=== PATIENT | female | born 1980 | race Caucasian/White ===

== ENCOUNTER 2018-04-09 04:52 | Emergency (ER) | payer OTHER, SELFPAY ==
[2018-04-09 05:02] VITALS: BP 111/90; PULSE 84; RESP 18; TEMP 36.1; O2SAT 98; BMI 31.4
--- NOTE | 2018-04-09 05:08 | ED.EXTPRO ---
HPI - Extremity Problem General Chief complaint: Extremity Problem,Nontraumatic Stated complaint: Can't move right arm Time Seen by Provider: 04/09/18 05:08 Source: patient, RN notes reviewed and old records reviewed Mode of arrival: ambulatory Limitations: no limitations History of Present Illness HPI Narrative: Patient is a 38-year-old female presents with right upper extremity numbness and tingling in inability to move it. She woke up this way. It actually starts in her neck. She has had spasms like this in the past but this is the 1st time she not been able to move her arm. She is able move her fingers. No fevers. MD Complaint: extremity pain Related Data Home Medications Medication Instructions Recorded Confirmed methocarbamol 500 - 1,000 mg PO HS #0 11/02/17 Previous Rx's Medication Instructions Recorded lidocaine [Lidoderm] 3 patch TOPICAL Q12H #60 ea 08/24/17 cyclobenzaprine 10 mg PO Q8HP PRN #30 tab 11/02/17 hydrocodone-acetaminophen [[place]] 2 tab PO Q6HP PRN #14 tab 11/02/17 meloxicam [Mobic] 15 mg PO [facility] #30 tab 11/02/17 nitrofurantoin monohyd/m-cryst 100 mg PO BID #10 cap 11/02/17 [Macrobid] diazepam [Valium] 5 mg PO Q12HR PRN #10 tab 04/09/18 hydrocodone-acetaminophen [[place]] 1 tab PO Q4-6H PRN #10 tab 04/09/18 Allergies Allergy/AdvReac Type Severity Reaction Status Date / Time verapamil [VERAPAMIL] Allergy Severe MY BP Verified 04/09/18 05:06 TANKS Review of Systems Review of Systems All systems reviewed & are unremarkable except as noted in HPI and below Constitutional Denies body ache(s), Denies chills and Denies fever(s) ENT Ears, Nose, Mouth, and Throat: Denies vertigo and Denies dizziness Cardiovascular Denies chest pain, Denies syncope, Denies palpitations, Denies dyspnea and Denies dyspnea on exertion Respiratory Denies dyspnea and Denies dyspnea on exertion Musculoskeletal Reports as per HPI Integumentary/Breasts Denies pruritus, Denies erythema, Denies rash and Denies wounds Neurologic Reports as per HPI, Denies vertigo, Denies dizziness, Denies syncope and Reports radicular pain Endocrine Denies palpitations PFSH Medical History CSF leak (Acute) PSVT (paroxysmal supraventricular tachycardia) (Acute) Surgical History H/O cardiac radiofrequency ablation (Acute) Social History Smoking Status: Never smoker Exam Initial Vital Signs Initial Vital Signs: Vital Signs Temperature 97.0 F L 04/09/18 05:02 Pulse Rate 84 04/09/18 05:02 Respiratory Rate 18 04/09/18 05:02 Blood Pressure 111/90 H 04/09/18 05:02 Pulse Oximetry 98 04/09/18 05:02 Const General: acute distress (Tearfull appears in pain) HENMT Head: normal to inspection and normocephalic Neck Neck: normal visual inspection, No full ROM and other (Bilateral paracervical muscles and trapezius muscle spasms. More on right than left. Pain reproducible with palpation. Decreased cervical motion) Chest Chest: normal inspection of the chest Resp Effort & Inspection: normal respiratory effort Auscultation: clear to auscultation bilaterally, no rales, no rhonchi and no wheezes Cardio Rhythm: regular rhythm Heart Sounds: S1 normal and S2 normal Back/Spine/Pelvis Cervical Spine: pain with cervical ROM, cervical spasm and No step off deformity Skin General: no rashes or lesions noted, No jaundice and No petechiae Course Orders Ordered: Discontinued Medications Hydrocodone Bitart/Acetaminophen (Vicodin Prepack) 1 bottle MISC SEEINSTR ONE Stop: 04/09/18 06:08 Last Admin: 04/09/18 06:20 Dose: 1 bottle Diazepam (Valium) 5 mg PO NOW ONE Stop: 04/09/18 05:16 Last Admin: 04/09/18 05:29 Dose: 5 mg Ketorolac Tromethamine (Toradol) 60 mg IM NOW ONE Stop: 04/09/18 05:16 Last Admin: 04/09/18 05:29 Dose: 60 mg Vital Signs - 8 hr 04/09/18 05:02 04/09/18 06:24 Temperature 97.0 F L Pulse Rate 84 78 Respiratory Rate 18 16 Blood Pressure 111/90 H 121/70 H Pulse Oximetry 98 96 MDM - Extremity (Nontraumatic) MDM Narrative Medical decision making narrative: This is clinically a muscle spasm. Pain is reproducible range of motion is limited. The pain did improve after medication. Discharge Plan Departure Patient Disposition: Home, Self-Care Clinical Impression: Cervical radiculopathy, Trapezius muscle spasm Discharge Date/Time: 04/09/18 06:26 Interventions: ED Discharge Assessment Last Done: 04/09/18 06:24 Instructions: DI for Muscle Strain Activity Restrictions/Additional Instructions: *You have been diagnosed with muscle spasm *What to do: Heating pad, increase activity as tolerated *Continue to take medications as directed Meloxicam once daily do not combine with other NSAIDs Valium 1 tablet every 12 hr if needed for muscle spasm [place] 1 tablet every 4 hr or 2 tablets every 6 hr if needed for severe pain *Follow up with your primary care provider in 2-3 days *Return to ER if you should have increasing pain, weakness, or any new, worsening or concerning symptoms CONTROLLED SUBSTANCE DISCHARGE (Narcotoic/benzodiazepine/Flexeril/Phenergan) 1. You have been prescribed narcotic medications, it does have acetaminophen/Tylenol/paracetamol in it so do not take extra Tylenol or Tylenol containing products 2. Please understand that we cannot provide further refills of narcotics, benzodiazepines or controlled substances through the ED and her pain management will need to be through your provider. 3. While on these medications you cannot drive or operate heavy machinery. 4. You cannot sign legal documents or perform any duties such as this. 5. As long as you're taking opiate pain medications he should also be taking a stool softener such as Colace, Dulcolax, MiraLAX or prune juice, to help avoid constipation. Prescriptions: New hydrocodone-acetaminophen [[place]] 5-325 mg tablet 1 tab PO Q4-6H PRN (Reason: pain) Qty: 10 RF: 0 diazepam [Valium] 5 mg tablet 5 mg PO Q12HR PRN (Reason: muscle spasm) Qty: 10 RF: 0 No Action lidocaine [Lidoderm] 1 EACH adhesive patch,medicated 3 patch Topical Q12H Qty: 60 RF: 0 methocarbamol 500 MG tablet 500 - 1,000 mg PO HS Qty: 0 RF: 0 cyclobenzaprine 10 MG tablet 10 mg PO Q8HP PRNQty: 30 RF: 0 hydrocodone-acetaminophen [[place]] 5 MG/325 MG tablet 2 tab PO Q6HP PRNQty: 14 RF: 0 meloxicam [Mobic] 15 MG tablet 15 mg PO AMCC Qty: 30 RF: 0 nitrofurantoin monohyd/m-cryst [Macrobid] 100 MG capsule 100 mg PO BID Qty: 10 RF: 0
--- NOTE | 2018-04-09 05:23 | ED_ITS ---
HPI - Extremity Problem General Chief complaint: Extremity Problem,Nontraumatic Stated complaint: Can't move right arm Time Seen by Provider: 04/09/18 05:08 Source: patient, RN notes reviewed and old records reviewed Mode of arrival: ambulatory Limitations: no limitations History of Present Illness HPI Narrative: Patient is a 38-year-old female presents with right upper extremity numbness and tingling in inability to move it. She woke up this way. It actually starts in her neck. She has had spasms like this in the past but this is the 1st time she not been able to move her arm. She is able move her fingers. No fevers. MD Complaint: extremity pain Related Data Home Medications Medication Instructions Recorded Confirmed methocarbamol 500 - 1,000 mg PO HS #0 11/02/17 Previous Rx's Medication Instructions Recorded lidocaine [Lidoderm] 3 patch TOPICAL Q12H #60 ea 08/24/17 cyclobenzaprine 10 mg PO Q8HP PRN #30 tab 11/02/17 hydrocodone-acetaminophen [[place]] 2 tab PO Q6HP PRN #14 tab 11/02/17 meloxicam [Mobic] 15 mg PO [facility] #30 tab 11/02/17 nitrofurantoin monohyd/m-cryst 100 mg PO BID #10 cap 11/02/17 [Macrobid] diazepam [Valium] 5 mg PO Q12HR PRN #10 tab 04/09/18 hydrocodone-acetaminophen [[place]] 1 tab PO Q4-6H PRN #10 tab 04/09/18 Allergies Allergy/AdvReac Type Severity Reaction Status Date / Time verapamil [VERAPAMIL] Allergy Severe MY BP Verified 04/09/18 05:06 TANKS Review of Systems Review of Systems All systems reviewed & are unremarkable except as noted in HPI and below Constitutional Denies body ache(s), Denies chills and Denies fever(s) ENT Ears, Nose, Mouth, and Throat: Denies vertigo and Denies dizziness Cardiovascular Denies chest pain, Denies syncope, Denies palpitations, Denies dyspnea and Denies dyspnea on exertion Respiratory Denies dyspnea and Denies dyspnea on exertion Musculoskeletal Reports as per HPI Integumentary/Breasts Denies pruritus, Denies erythema, Denies rash and Denies wounds Neurologic Reports as per HPI, Denies vertigo, Denies dizziness, Denies syncope and Reports radicular pain Endocrine Denies palpitations PFSH Medical History CSF leak (Acute) PSVT (paroxysmal supraventricular tachycardia) (Acute) Surgical History H/O cardiac radiofrequency ablation (Acute) Social History Smoking Status: Never smoker Exam Initial Vital Signs Initial Vital Signs: Vital Signs Temperature 97.0 F L 04/09/18 05:02 Pulse Rate 84 04/09/18 05:02 Respiratory Rate 18 04/09/18 05:02 Blood Pressure 111/90 H 04/09/18 05:02 Pulse Oximetry 98 04/09/18 05:02 Const General: acute distress (Tearfull appears in pain) HENMT Head: normal to inspection and normocephalic Neck Neck: normal visual inspection, No full ROM and other (Bilateral paracervical muscles and trapezius muscle spasms. More on right than left. Pain reproducible with palpation. Decreased cervical motion) Chest Chest: normal inspection of the chest Resp Effort & Inspection: normal respiratory effort Auscultation: clear to auscultation bilaterally, no rales, no rhonchi and no wheezes Cardio Rhythm: regular rhythm Heart Sounds: S1 normal and S2 normal Back/Spine/Pelvis Cervical Spine: pain with cervical ROM, cervical spasm and No step off deformity Skin General: no rashes or lesions noted, No jaundice and No petechiae Course Orders Ordered: Discontinued Medications Hydrocodone Bitart/Acetaminophen (Vicodin Prepack) 1 bottle MISC SEEINSTR ONE Stop: 04/09/18 06:08 Last Admin: 04/09/18 06:20 Dose: 1 bottle Diazepam (Valium) 5 mg PO NOW ONE Stop: 04/09/18 05:16 Last Admin: 04/09/18 05:29 Dose: 5 mg Ketorolac Tromethamine (Toradol) 60 mg IM NOW ONE Stop: 04/09/18 05:16 Last Admin: 04/09/18 05:29 Dose: 60 mg Vital Signs - 8 hr 04/09/18 05:02 04/09/18 06:24 Temperature 97.0 F L Pulse Rate 84 78 Respiratory Rate 18 16 Blood Pressure 111/90 H 121/70 H Pulse Oximetry 98 96 MDM - Extremity (Nontraumatic) MDM Narrative Medical decision making narrative: This is clinically a muscle spasm. Pain is reproducible range of motion is limited. The pain did improve after medication. Discharge Plan Departure Patient Disposition: Home, Self-Care Clinical Impression: Cervical radiculopathy, Trapezius muscle spasm Discharge Date/Time: 04/09/18 06:26 Interventions: ED Discharge Assessment Last Done: 04/09/18 06:24 Instructions: DI for Muscle Strain Activity Restrictions/Additional Instructions: *You have been diagnosed with muscle spasm *What to do: Heating pad, increase activity as tolerated *Continue to take medications as directed Meloxicam once daily do not combine with other NSAIDs Valium 1 tablet every 12 hr if needed for muscle spasm [place] 1 tablet every 4 hr or 2 tablets every 6 hr if needed for severe pain *Follow up with your primary care provider in 2-3 days *Return to ER if you should have increasing pain, weakness, or any new, worsening or concerning symptoms CONTROLLED SUBSTANCE DISCHARGE (Narcotoic/benzodiazepine/Flexeril/Phenergan) 1. You have been prescribed narcotic medications, it does have acetaminophen/ Tylenol/paracetamol in it so do not take extra Tylenol or Tylenol containing products 2. Please understand that we cannot provide further refills of narcotics, benzodiazepines or controlled substances through the ED and her pain management will need to be through your provider. 3. While on these medications you cannot drive or operate heavy machinery. 4. You cannot sign legal documents or perform any duties such as this. 5. As long as you're taking opiate pain medications he should also be taking a stool softener such as Colace, Dulcolax, MiraLAX or prune juice, to help avoid constipation. Prescriptions: New hydrocodone-acetaminophen [[place]] 5-325 mg tablet 1 tab PO Q4-6H PRN (Reason: pain) Qty: 10 RF: 0 diazepam [Valium] 5 mg tablet 5 mg PO Q12HR PRN (Reason: muscle spasm) Qty: 10 RF: 0 No Action lidocaine [Lidoderm] 1 EACH adhesive patch,medicated 3 patch Topical Q12H Qty: 60 RF: 0 methocarbamol 500 MG tablet 500 - 1,000 mg PO HS Qty: 0 RF: 0 cyclobenzaprine 10 MG tablet 10 mg PO Q8HP PRNQty: 30 RF: 0 hydrocodone-acetaminophen [[place]] 5 MG/325 MG tablet 2 tab PO Q6HP PRNQty: 14 RF: 0 meloxicam [Mobic] 15 MG tablet 15 mg PO AMCC Qty: 30 RF: 0 nitrofurantoin monohyd/m-cryst [Macrobid] 100 MG capsule 100 mg PO BID Qty: 10 RF: 0
[2018-04-09] MEDS: KETOROLAC 60 MG/2 ML VIAL IM (05:29)
[2018-04-09] MEDS: diazePAM 5 MG TABLET PO (05:29)
[2018-04-09] MEDS: HYDROCODONE/ACET 5/325 PREPACK 1 BOTTLE MISC (06:20)
[2018-04-09 06:24] VITALS: BP 121/70; PULSE 78; RESP 16; O2SAT 96
== END 2018-04-09 06:26 | disposition home or self-care (01) ==
PROVIDERS: Emergency Provider Emergency Medicine
DX: M54.12 Radiculopathy, cervical region (principal); M62.838 Other muscle spasm
CPT/HCPCS: 96372; 99282; 99283; J1885

== ENCOUNTER 2018-08-09 04:46 | Emergency (ER) | payer OTHER, SELFPAY ==
--- NOTE | 2018-08-09 04:48 | ED.EXTPRO ---
HPI - Extremity Problem General Chief complaint: Extremity Problem,Nontraumatic Stated complaint: right shoulder pain x1 day Time Seen by Provider: 08/09/18 04:47 Source: patient Mode of arrival: ambulatory Limitations: no limitations History of Present Illness HPI Narrative: 38-year-old female here for evaluation right hand tingling and right arm pain. Patient was seen here in the emergency department several months ago for very similar symptoms. She received Toradol and Valium which seemed to improve her symptoms. She states that since then she has occasionally had right arm pain. Seems to be focused in the shoulder. Seen her primary care doctor about this. He is currently undergoing a workup for MS. She reports that over the past couple days especially over the past 24 hr she has had pain in the right arm and right shoulder. She states she does get some improvement when she has pressure placed on the back of her right shoulder. States the tingling is in her right hand to include her little ring and middle fingers. No trauma. No fevers. Related Data Home Medications Medication Instructions Recorded Confirmed methocarbamol 500 - 1,000 mg PO HS #0 11/02/17 Previous Rx's Medication Instructions Recorded lidocaine [Lidoderm] 3 patch TOPICAL Q12H #60 ea 08/24/17 cyclobenzaprine 10 mg PO Q8HP PRN #30 tab 11/02/17 hydrocodone-acetaminophen [[place]] 2 tab PO Q6HP PRN #14 tab 11/02/17 meloxicam [Mobic] 15 mg PO [facility] #30 tab 11/02/17 nitrofurantoin monohyd/m-cryst 100 mg PO BID #10 cap 11/02/17 [Macrobid] diazepam [Valium] 5 mg PO Q12HR PRN #10 tab 04/09/18 hydrocodone-acetaminophen [[place]] 1 tab PO Q4-6H PRN #10 tab 04/09/18 cyclobenzaprine 10 mg PO TID PRN #10 tab 08/09/18 Allergies Allergy/AdvReac Type Severity Reaction Status Date / Time verapamil [VERAPAMIL] Allergy Severe MY BP Verified 04/09/18 05:06 TANKS Review of Systems Constitutional Denies fever(s) and Denies headache(s) ENT Ears, Nose, Mouth, and Throat: Denies headache(s), Reports neck pain and Denies sore throat Cardiovascular Denies chest pain and Denies dyspnea Respiratory Denies dyspnea Musculoskeletal Denies arthralgias, Reports neck pain and Reports tingling Integumentary/Breasts Denies rash Neurologic Denies headache(s) and Reports tingling PFSH Medical History CSF leak (Acute) PSVT (paroxysmal supraventricular tachycardia) (Acute) Surgical History H/O cardiac radiofrequency ablation (Acute) Social History Smoking Status: Never smoker Exam Initial Vital Signs Initial Vital Signs: Vital Signs Temperature 98.2 F 08/09/18 04:51 Pulse Rate 80 08/09/18 04:51 Respiratory Rate 18 08/09/18 04:51 Blood Pressure 129/92 H 08/09/18 04:51 Pulse Oximetry 95 08/09/18 04:51 Const General: cooperative, healthy appearing, comfortable, well developed, well groomed and No acute distress Orientation: alert, awake and oriented x3 HENMT Head: normal to inspection and normocephalic Resp Effort & Inspection: normal respiratory effort Auscultation: clear to auscultation bilaterally Cardio Rate: regular rate Pulses: radial pulses present on the right Back/Spine/Pelvis Cervical Spine: No pain with cervical ROM and No cervical spasm Skin Lesions: no lesions Rashes: no rashes Neuro General: alert, awake and oriented x3 Other: Patient reports tingling to the lateral portion of her right hand. No sensation difference to light touch compared to the left side. Extrem Other: Patient with fullness and tenderness palpation over the right trapezius muscle. He does seem to reproduce the symptoms that brought her into the emergency department. No pain with movement of the right wrist of the right elbow. Can also reproduce the pain with movement of the right shoulder in abduction. Psych Appearance: grossly normal and well kempt Course Orders Ordered: Discontinued Medications Diazepam (Valium) 5 mg PO NOW ONE Stop: 08/09/18 04:57 Last Admin: 08/09/18 05:00 Dose: 5 mg Ketorolac Tromethamine (Toradol) 30 mg IM NOW ONE Stop: 08/09/18 04:57 Last Admin: 08/09/18 05:00 Dose: 30 mg Vital Signs - 8 hr 08/09/18 04:51 08/09/18 05:06 Temperature 98.2 F 98.2 F Pulse Rate 80 80 Respiratory Rate 18 18 Blood Pressure 129/92 H 129/92 H Pulse Oximetry 95 95 MDM - Extremity (Nontraumatic) MDM Narrative Medical decision making narrative: patient clinically is got a trapezius muscle spasm. she did report improvement of her symptoms after the Toradol the Valium here in the ER. Hold on further workup for now. Will send home with a prescription for Flexeril. Patient was given return precautions. She expressed understanding and agreement with plan. Discharge Plan Departure Patient Disposition: Home Clinical Impression: Trapezius muscle spasm Instructions: DI for Cervical Muscle Strain Activity Restrictions/Additional Instructions: You can use heat or ice and massage to her right shoulder. Also recommend that you stay as active as possible. Contact your primary care doctor for a follow-up and to discuss the results of the workup that is being performed. Return to the emergency department for any new or worsening symptoms Prescriptions: New cyclobenzaprine 10 mg tablet 10 mg PO TID PRN (Reason: muscle spasm) Qty: 10 RF: 0 No Action lidocaine [Lidoderm] 1 EACH adhesive patch,medicated 3 patch Topical Q12H Qty: 60 RF: 0 methocarbamol 500 MG tablet 500 - 1,000 mg PO HS Qty: 0 RF: 0 cyclobenzaprine 10 MG tablet 10 mg PO Q8HP PRNQty: 30 RF: 0 hydrocodone-acetaminophen [[place]] 5 MG/325 MG tablet 2 tab PO Q6HP PRNQty: 14 RF: 0 meloxicam [Mobic] 15 MG tablet 15 mg PO [facility]CC Qty: 30 RF: 0 nitrofurantoin monohyd/m-cryst [[place]ro[place]] 100 MG capsule 100 mg PO BID Qty: 10 RF: 0 hydrocodone-acetaminophen [[place]] 5-325 mg tablet 1 tab PO Q4-6H PRN (Reason: pain) Qty: 10 RF: 0 diazepam [Valium] 5 mg tablet 5 mg PO Q12HR PRN (Reason: muscle spasm) Qty: 10 RF: 0
[2018-08-09 04:51] VITALS: BP 129/92; PULSE 80; RESP 18; TEMP 36.8; O2SAT 95; BMI 30.7
[2018-08-09] MEDS: diazePAM 5 MG TABLET PO (05:00)
[2018-08-09] MEDS: KETOROLAC 60 MG/2 ML VIAL 30 MG IM (05:00)
[2018-08-09 05:06] VITALS: BP 129/92; PULSE 80; RESP 18; TEMP 36.8; O2SAT 95; BMI 30.7
[2018-08-09 05:43] VITALS: BP 128/85; PULSE 82; RESP 15; O2SAT 97
== END 2018-08-09 05:44 | disposition home or self-care (01) ==
PROVIDERS: Emergency Provider Emergency Medicine
DX: M62.838 Other muscle spasm (principal)
CPT/HCPCS: 96372; 99282; 99283; J1885

== ENCOUNTER 2018-12-11 16:08 | Emergency (ER) | payer OTHER, SELFPAY ==
[2018-12-11 16:11] VITALS: BP 133/90; PULSE 85; RESP 20; TEMP 36.8; O2SAT 97
[2018-12-11 17:01] LABS: Influenza A and B by PCR Rapid Negative (Negative)
[2018-12-11 17:14] VITALS: BP 110/68; PULSE 79; RESP 18; O2SAT 99
[2018-12-11] MEDS: diphenhydrAMINE 50 MG/ML VIAL 25 MG IV (17:22)
[2018-12-11] MEDS: METOCLOPRAMIDE 10 MG/2 ML INJ IV (17:22)
[2018-12-11] MEDS: SODIUM CHLORIDE 0.9% 1,000 ML 1000 ML IV (17:22)
[2018-12-11 17:33] VITALS: BP 113/71; PULSE 70; O2SAT 99
--- NOTE | 2018-12-11 18:05 | ED.HA ---
HPI - Headache <KINGS Wilkerson - Last Filed: 12/11/18 21:26> General Chief Complaint: Headache Stated Complaint: HEADACHE FOR 3 DAYS Time Seen by Provider: 12/11/18 17:52 Source: patient Mode of arrival: ambulatory Limitations: no limitations History of Present Illness HPI Narrative: 38-year-old female with history of SVT is a nonsmoker here for complaint of having headache for the last 3 days. She denies having a headache/migraine history. She denies any trauma. No fevers no chills. she also reports she has had photophobia and some nausea vomiting. She denies any auras. No other concerns or complaints at this time frame. She is ambulatory into the emergency room. Related Data Home Medications Medication Instructions Recorded Confirmed methocarbamol 500 - 1,000 mg PO HS #0 11/02/17 Previous Rx's Medication Instructions Recorded lidocaine [Lidoderm] 3 patch TOPICAL Q12H #60 ea 08/24/17 cyclobenzaprine 10 mg PO Q8HP PRN #30 tab 11/02/17 hydrocodone-acetaminophen [Bonifay] 2 tab PO Q6HP PRN #14 tab 11/02/17 meloxicam [Mobic] 15 mg PO AMCC #30 tab 11/02/17 nitrofurantoin monohyd/m-cryst 100 mg PO BID #10 cap 11/02/17 [Macrobid] diazepam [Valium] 5 mg PO Q12HR PRN #10 tab 04/09/18 hydrocodone-acetaminophen [Bonifay] 1 tab PO Q4-6H PRN #10 tab 04/09/18 cyclobenzaprine 10 mg PO TID PRN #10 tab 08/09/18 Allergies Allergy/AdvReac Type Severity Reaction Status Date / Time verapamil [VERAPAMIL] Allergy Severe MY BP Verified 04/09/18 05:06 TANKS Review of Systems <KINGS Wilkerson - Last Filed: 12/11/18 21:26> Constitutional Denies chills, Denies fever(s), Reports headache(s), Denies lethargy and Denies weakness ENT Ears, Nose, Mouth, and Throat: Denies change in voice, Reports headache(s), Denies neck pain, Denies sore throat and Denies throat swelling Cardiovascular Denies chest pain, Denies irregular heart rhythm, Denies lightheadedness, Denies palpitations and Denies orthopnea Respiratory Denies wheezing Gastrointestinal Gastrointestinal: Denies abdominal pain, Denies change in bowel habits, Denies diarrhea, Denies nausea and Denies vomiting Genitourinary Denies hematuria, Denies flank pain, Denies urinary incontinence and Denies urinary urgency Musculoskeletal Denies neck pain Integumentary/Breasts Denies pruritus, Denies erythema, Denies rash and Denies wounds Neurologic Reports headache(s) and Denies weakness Endocrine Denies palpitations Allergic/Immunologic Denies urticaria, Denies throat swelling and Denies wheezing PFSH <KINGS Wilkerson - Last Filed: 12/11/18 21:26> Medical History CSF leak (Acute) PSVT (paroxysmal supraventricular tachycardia) (Acute) Surgical History H/O cardiac radiofrequency ablation (Acute) Social History Smoking Status: Never smoker Social History Smoking Status: Never smoker Exam <KINGS Wilkerson - Last Filed: 12/11/18 21:26> Initial Vital Signs Initial Vital Signs: Vital Signs Temperature 98.3 F 12/11/18 16:11 Pulse Rate 85 12/11/18 16:11 Respiratory Rate 20 12/11/18 16:11 Blood Pressure 133/90 12/11/18 16:11 Pulse Oximetry 97 12/11/18 16:11 Const General: cooperative and well developed Nutritional Appearance: well nourished Orientation: alert, awake, oriented x3 and not confused [facility] Mouth: oral mucosae normal and moist mucous membranes Eyes Conjunctivae: conjunctivae normal Sclera: sclerae normal Pupils: PERRL EOM: EOM intact bilaterally Neck Neck: normal visual inspection, trachea midline, No lymphadenopathy, No midline deformity and No JVD Lymphatic: No lymphedema Resp Effort & Inspection: normal respiratory effort, able to speak in complete sentences, no respiratory distress and no use of accessory muscles Auscultation: clear to auscultation bilaterally, no rales, no rhonchi and no wheezes Cardio Rate: regular rate Rhythm: regular rhythm Heart Sounds: no click, no gallops, no murmurs and no rubs Pulses: normal peripheral pulses Skin General: no rashes or lesions noted, No jaundice and No petechiae Neuro General: alert, oriented x3, gait normal and no focal motor deficits Speech: speech normal <Renny Avila DO - Last Filed: 12/11/18 23:58> Initial Vital Signs Initial Vital Signs: Vital Signs Temperature 98.3 F 12/11/18 16:11 Pulse Rate 85 12/11/18 16:11 Respiratory Rate 20 12/11/18 16:11 Blood Pressure 133/90 12/11/18 16:11 Pulse Oximetry 97 12/11/18 16:11 Course <KINGS Wilkerson - Last Filed: 12/11/18 21:26> Orders Ordered: ED Orders 12/11/18 16:18 Influenza A and B by PCR Rapid Stat 12/11/18 18:30 CT head/brain wo con Stat 12/11/18 19:00 Complete Blood Count AUTO DIFF Stat Comprehensive Metabolic Panel Stat Discontinued Medications Dexamethasone (Decadron) 10 mg IV NOW ONE Stop: 12/11/18 17:16 Last Admin: 12/11/18 17:58 Dose: Not Given Diphenhydramine HCl (Benadryl) 25 mg IV NOW ONE Stop: 12/11/18 17:16 Last Admin: 12/11/18 17:22 Dose: 25 mg Sodium Chloride (Normal Saline 0.9%) 1,000 mls @ 1,000 mls/hr IV BOLUS ONE Stop: 12/11/18 18:14 Last Infusion: 12/11/18 18:17 Dose: 0 mls/hr Admin: 12/11/18 17:22 Dose: 1,000 mls/hr Ketorolac Tromethamine (Toradol) 30 mg IV NOW ONE Stop: 12/11/18 18:31 Last Admin: 12/11/18 18:45 Dose: 30 mg Metoclopramide HCl (Reglan) 10 mg IV NOW ONE Stop: 12/11/18 17:16 Last Admin: 12/11/18 17:22 Dose: 10 mg Vital Signs - 8 hr 12/11/18 16:11 12/11/18 17:14 12/11/18 17:33 Temperature 98.3 F Pulse Rate 85 79 70 Respiratory Rate 20 18 Blood Pressure 133/90 Blood Pressure [Left Arm] 110/68 113/71 Pulse Oximetry 97 99 99 12/11/18 18:30 12/11/18 19:45 Temperature Pulse Rate 63 62 Respiratory Rate 15 Blood Pressure Blood Pressure [Left Arm] 115/53 L 113/66 Pulse Oximetry 97 98 <Renny Avila DO - Last Filed: 12/11/18 23:58> Orders Ordered: ED Orders 12/11/18 16:18 Influenza A and B by PCR Rapid Stat 12/11/18 18:30 CT head/brain wo con Stat 12/11/18 19:00 Complete Blood Count AUTO DIFF Stat Comprehensive Metabolic Panel Stat Discontinued Medications Dexamethasone (Decadron) 10 mg IV NOW ONE Stop: 12/11/18 17:16 Last Admin: 12/11/18 17:58 Dose: Not Given Diphenhydramine HCl (Benadryl) 25 mg IV NOW ONE Stop: 12/11/18 17:16 Last Admin: 12/11/18 17:22 Dose: 25 mg Sodium Chloride (Normal Saline 0.9%) 1,000 mls @ 1,000 mls/hr IV BOLUS ONE Stop: 12/11/18 18:14 Last Infusion: 12/11/18 18:17 Dose: 0 mls/hr Admin: 12/11/18 17:22 Dose: 1,000 mls/hr Ketorolac Tromethamine (Toradol) 30 mg IV NOW ONE Stop: 12/11/18 18:31 Last Admin: 12/11/18 18:45 Dose: 30 mg Metoclopramide HCl (Reglan) 10 mg IV NOW ONE Stop: 12/11/18 17:16 Last Admin: 12/11/18 17:22 Dose: 10 mg Vital Signs - 8 hr 12/11/18 16:11 12/11/18 17:14 12/11/18 17:33 Temperature 98.3 F Pulse Rate 85 79 70 Respiratory Rate 20 18 Blood Pressure 133/90 Blood Pressure [Left Arm] 110/68 113/71 Pulse Oximetry 97 99 99 12/11/18 18:30 12/11/18 19:45 Temperature Pulse Rate 63 62 Respiratory Rate 15 Blood Pressure Blood Pressure [Left Arm] 115/53 L 113/66 Pulse Oximetry 97 98 MDM - Headache <KINGS Wilkerson - Last Filed: 12/11/18 21:26> Lab Data Result diagrams: 12/11/18 19:00 12/11/18 19:00 Lab Results 12/11/18 12/11/18 12/11/18 Range/Units 16:18 19:00 19:00 WBC 6.5 (4.5-11.0) X10^3/uL RBC 4.24 (4.0-5.2) X10^6/uL Hgb 12.8 (12.0-16.0) g/dL Hct 38.4 (36-46) % MCV 90.5 (80-100) fL MCH 30.2 (26-34) PG MCHC 33.4 (30-36) % RDW 13.4 (11.6-14.8) % Plt Count 222 (150-400) X10^3/uL Neut % (Auto) 60.1 (50-75) % Lymph % (Auto) 28.7 (25-40) % [place] % (Auto) 7.2 (3-14) % Eos % (Auto) 3.6 (2-4) % Baso % (Auto) 0.4 (0-2) % Neut # (Auto) 3900 (3405-0526) /uL Lymph # (Auto) 1900 (5995-3607) /uL [place] # (Auto) 500 (0-900) /uL Eos # (Auto) 200 (0-450) /uL Baso # (Auto) 0 (0-100) /uL Sodium 139 (137-145) mmol/L Potassium 4.0 (3.4-5.1) mmol/L Chloride 108 H (98-107) mmol/L Carbon Dioxide 23 (22-32) mmol/L BUN 9 (7-17) mg/dL Creatinine 0.70 (0.52-1.04) mg/dL Estimated GFR > 60.0 (>60) mL/min BUN/Creatinine Ratio 12.9 (6-22) Glucose 94 (70-100) mg/dL Calcium 8.0 L (8.4-10.2) mg/dL Total Bilirubin 0.4 (0.2-1.3) mg/dL AST 22 (14-36) IU/L ALT 26 (9-52) IU/L Alkaline Phosphatase 44 (38-126) U/L Total Protein 6.6 (6.3-8.2) g/dL Albumin 3.9 (3.5-5.0) g/dL Globulin 2.7 (1.7-4.1) g/dL Albumin/Globulin Ratio 1.4 (1.0-2.8) Influenza A & B (PCR) Negative (Negative) Imaging Data CT scan - head: Radiologist's impression: [address] [address] [address] Scan Report Signed Patient: Yudith Mead EMR#: [id number] : 1980Acct:[id number] Age/Sex: 38 / FDate of Service: 12/11/18 Loc: ED Accession Number: [id number] Procedure: CT head/brain wo con Ordering Provider: Serg Cole PROCEDURE: CT HEAD/BRAIN WO CON INDICATIONS: headache TECHNIQUE: Noncontrast 4.5 mm thick angled axial sections acquired from the foramen magnum to the vertex, with coronal and sagittal reformats. For radiation dose reduction, the following was used: automated exposure control, adjustment of mA and/or kV according to patient size. COMPARISON: [facility], CT, HEAD WITHOUT CONTRAST, 12/07/2015, 16:47. FINDINGS: Image quality: Excellent. CSF spaces: Basal cisterns are patent. No extra-axial fluid collections. Ventricles are normal in size and shape. Brain: No midline shift. No intracranial masses or hemorrhage. Stallings-white matter interface is normal. Skull and face: Calvarium and visualized facial bones are intact, without suspicious lesions. Sinuses: Visualized sinuses demonstrate minimal right maxillary sinus mucosal thickening. IMPRESSION: 1. No acute intracranial process. Dictated by: Vy Mauro M.D. on 12/11/2018 at 18:50 Approved by: Vy Mauro M.D. on 12/11/2018 at 18:52 MDM Narrative Medical decision making narrative: Influenza swab was obtained and was negative. CT scan was obtained of the head and was also negative. CBC and Chem panel were obtained and were unremarkable. She was given Toradol Reglan and Benadryl along with fluids in the emergency room. This reduced her headache. no emergent causes of headache are appreciated. headache presents with migraine components. Home to quiet environment. Plenty of fluids and rest. Follow up with primary care provider. Return emergency room for worsening symptoms. <Renny [place], DO - Last Filed: 12/11/18 23:58> Lab Data Lab Results 12/11/18 12/11/18 12/11/18 Range/Units 16:18 19:00 19:00 WBC 6.5 (4.5-11.0) X10^3/uL RBC 4.24 (4.0-5.2) X10^6/uL Hgb 12.8 (12.0-16.0) g/dL Hct 38.4 (36-46) % MCV 90.5 (80-100) fL MCH 30.2 (26-34) PG MCHC 33.4 (30-36) % RDW 13.4 (11.6-14.8) % Plt Count 222 (150-400) X10^3/uL Neut % (Auto) 60.1 (50-75) % Lymph % (Auto) 28.7 (25-40) % [place] % (Auto) 7.2 (3-14) % Eos % (Auto) 3.6 (2-4) % Baso % (Auto) 0.4 (0-2) % Neut # (Auto) 3900 (1049-3438) /uL Lymph # (Auto) 1900 (7585-4094) /uL [place] # (Auto) 500 (0-900) /uL Eos # (Auto) 200 (0-450) /uL Baso # (Auto) 0 (0-100) /uL Sodium 139 (137-145) mmol/L Potassium 4.0 (3.4-5.1) mmol/L Chloride 108 H (98-107) mmol/L Carbon Dioxide 23 (22-32) mmol/L BUN 9 (7-17) mg/dL Creatinine 0.70 (0.52-1.04) mg/dL Estimated GFR > 60.0 (>60) mL/min BUN/Creatinine Ratio 12.9 (6-22) Glucose 94 (70-100) mg/dL Calcium 8.0 L (8.4-10.2) mg/dL Total Bilirubin 0.4 (0.2-1.3) mg/dL AST 22 (14-36) IU/L ALT 26 (9-52) IU/L Alkaline Phosphatase 44 (38-126) U/L Total Protein 6.6 (6.3-8.2) g/dL Albumin 3.9 (3.5-5.0) g/dL Globulin 2.7 (1.7-4.1) g/dL Albumin/Globulin Ratio 1.4 (1.0-2.8) Influenza A & B (PCR) Negative (Negative) Discharge Plan Departure Patient Disposition: Home Clinical Impression: Headache Qualifiers: Headache type: unspecified Headache chronicity pattern: acute headache Intractability: not intractable Qualified Code(s): R51 - Headache Discharge Date/Time: 12/11/18 19:57 Interventions: ED Discharge Assessment Last Done: 12/11/18 19:57 Instructions: DI for Migraine, DI for Headache Activity Restrictions/Additional Instructions: Laboratory results today and imaging were unremarkable. Signs and symptoms presents as headache with migraine tendencies. Home to quiet environment. rest. Plenty of fluids. Follow up with her primary care provider next few days. For any worsening symptoms return to the emergency room. Prescriptions: No Action lidocaine [Lidoderm] 1 EACH adhesive patch,medicated 3 patch Topical Q12H Qty: 60 RF: 0 methocarbamol 500 MG tablet 500 - 1,000 mg PO HS Qty: 0 RF: 0 cyclobenzaprine 10 MG tablet 10 mg PO Q8HP PRNQty: 30 RF: 0 hydrocodone-acetaminophen [Bonifay] 5 MG/325 MG tablet 2 tab PO Q6HP PRNQty: 14 RF: 0 meloxicam [Mobic] 15 MG tablet 15 mg PO AMCC Qty: 30 RF: 0 nitrofurantoin monohyd/m-cryst [Macrobid] 100 MG capsule 100 mg PO BID Qty: 10 RF: 0 hydrocodone-acetaminophen [Bonifay] 5-325 mg tablet 1 tab PO Q4-6H PRN (Reason: pain) Qty: 10 RF: 0 diazepam [Valium] 5 mg tablet 5 mg PO Q12HR PRN (Reason: muscle spasm) Qty: 10 RF: 0 cyclobenzaprine 10 mg tablet 10 mg PO TID PRN (Reason: muscle spasm) Qty: 10 RF: 0 Referrals: [facility] [Provider Group] <Renny Avila DO - Last Filed: 12/11/18 23:58> Cosign ED Attending Cosjoseature Attestation: I was immediately available in the department for consultation. Documentation has been reviewed. I agree with assessment and plan.
[2018-12-11 18:30] VITALS: BP 115/53; PULSE 63; RESP 15; O2SAT 97
--- NOTE | 2018-12-11 18:30 | DI.CT.S_ITS ---
PROCEDURE: CT HEAD/BRAIN WO CON INDICATIONS: headache TECHNIQUE: Noncontrast 4.5 mm thick angled axial sections acquired from the foramen magnum to the vertex, with coronal and sagittal reformats. For radiation dose reduction, the following was used: automated exposure control, adjustment of mA and/or kV according to patient size. COMPARISON: [facility], CT, HEAD WITHOUT CONTRAST, 12/07/2015, 16:47. FINDINGS: Image quality: Excellent. CSF spaces: Basal cisterns are patent. No extra-axial fluid collections. Ventricles are normal in size and shape. Brain: No midline shift. No intracranial masses or hemorrhage. Stallings-white matter interface is normal. Skull and face: Calvarium and visualized facial bones are intact, without suspicious lesions. Sinuses: Visualized sinuses demonstrate minimal right maxillary sinus mucosal thickening. IMPRESSION: 1. No acute intracranial process. Dictated by: Vy Mauro M.D. on 12/11/2018 at 18:50 Approved by: Vy Mauro M.D. on 12/11/2018 at 18:52
[2018-12-11] MEDS: KETOROLAC 60 MG/2 ML VIAL 30 MG IV (18:45)
--- NOTE | 2018-12-11 19:10 | ED_ITS ---
HPI - Headache <KINGS Wilkerson - Last Filed: 12/11/18 21:26> General Chief Complaint: Headache Stated Complaint: HEADACHE FOR 3 DAYS Time Seen by Provider: 12/11/18 17:52 Source: patient Mode of arrival: ambulatory Limitations: no limitations History of Present Illness HPI Narrative: 38-year-old female with history of SVT is a nonsmoker here for complaint of having headache for the last 3 days. She denies having a headache/migraine history. She denies any trauma. No fevers no chills. she also reports she has had photophobia and some nausea vomiting. She denies any auras. No other concerns or complaints at this time frame. She is ambulatory into the emergency room. Related Data Home Medications Medication Instructions Recorded Confirmed methocarbamol 500 - 1,000 mg PO HS #0 11/02/17 Previous Rx's Medication Instructions Recorded lidocaine [Lidoderm] 3 patch TOPICAL Q12H #60 ea 08/24/17 cyclobenzaprine 10 mg PO Q8HP PRN #30 tab 11/02/17 hydrocodone-acetaminophen [[place]] 2 tab PO Q6HP PRN #14 tab 11/02/17 meloxicam [Mobic] 15 mg PO AMCC #30 tab 11/02/17 nitrofurantoin monohyd/m-cryst 100 mg PO BID #10 cap 11/02/17 [Macrobid] diazepam [Valium] 5 mg PO Q12HR PRN #10 tab 04/09/18 hydrocodone-acetaminophen [[place]] 1 tab PO Q4-6H PRN #10 tab 04/09/18 cyclobenzaprine 10 mg PO TID PRN #10 tab 08/09/18 Allergies Allergy/AdvReac Type Severity Reaction Status Date / Time verapamil [VERAPAMIL] Allergy Severe MY BP Verified 04/09/18 05:06 TANKS Review of Systems <KINGS Wilkerson - Last Filed: 12/11/18 21:26> Constitutional Denies chills, Denies fever(s), Reports headache(s), Denies lethargy and Denies weakness ENT Ears, Nose, Mouth, and Throat: Denies change in voice, Reports headache(s), D enies neck pain, Denies sore throat and Denies throat swelling Cardiovascular Denies chest pain, Denies irregular heart rhythm, Denies lightheadedness, Denies palpitations and Denies orthopnea Respiratory Denies wheezing Gastrointestinal Gastrointestinal: Denies abdominal pain, Denies change in bowel habits, Denies diarrhea, Denies nausea and Denies vomiting Genitourinary Denies hematuria, Denies flank pain, Denies urinary incontinence and Denies urinary urgency Musculoskeletal Denies neck pain Integumentary/Breasts Denies pruritus, Denies erythema, Denies rash and Denies wounds Neurologic Reports headache(s) and Denies weakness Endocrine Denies palpitations Allergic/Immunologic Denies urticaria, Denies throat swelling and Denies wheezing PFSH <KINGS Wilkerson - Last Filed: 12/11/18 21:26> Medical History CSF leak (Acute) PSVT (paroxysmal supraventricular tachycardia) (Acute) Surgical History H/O cardiac radiofrequency ablation (Acute) Social History Smoking Status: Never smoker Social History Smoking Status: Never smoker Exam <KINGS Wilkerson - Last Filed: 12/11/18 21:26> Initial Vital Signs Initial Vital Signs: Vital Signs Temperature 98.3 F 12/11/18 16:11 Pulse Rate 85 12/11/18 16:11 Respiratory Rate 20 12/11/18 16:11 Blood Pressure 133/90 12/11/18 16:11 Pulse Oximetry 97 12/11/18 16:11 Const General: cooperative and well developed Nutritional Appearance: well nourished Orientation: alert, awake, oriented x3 and not confused [facility] Mouth: oral mucosae normal and moist mucous membranes Eyes Conjunctivae: conjunctivae normal Sclera: sclerae normal Pupils: PERRL EOM: EOM intact bilaterally Neck Neck: normal visual inspection, trachea midline, No lymphadenopathy, No midline deformity and No JVD Lymphatic: No lymphedema Resp Effort & Inspection: normal respiratory effort, able to speak in complete sentences, no respiratory distress and no use of accessory muscles Auscultation: clear to auscultation bilaterally, no rales, no rhonchi and no wheezes Cardio Rate: regular rate Rhythm: regular rhythm Heart Sounds: no click, no gallops, no murmurs and no rubs Pulses: normal peripheral pulses Skin General: no rashes or lesions noted, No jaundice and No petechiae Neuro General: alert, oriented x3, gait normal and no focal motor deficits Speech: speech normal <Renny Avila DO - Last Filed: 12/11/18 23:58> Initial Vital Signs Initial Vital Signs: Vital Signs Temperature 98.3 F 12/11/18 16:11 Pulse Rate 85 12/11/18 16:11 Respiratory Rate 20 12/11/18 16:11 Blood Pressure 133/90 12/11/18 16:11 Pulse Oximetry 97 12/11/18 16:11 Course <KINGS Wilkerson - Last Filed: 12/11/18 21:26> Orders Ordered: ED Orders 12/11/18 16:18 Influenza A and B by PCR Rapid Stat 12/11/18 18:30 CT head/brain wo con Stat 12/11/18 19:00 Complete Blood Count AUTO DIFF Stat Comprehensive Metabolic Panel Stat Discontinued Medications Dexamethasone (Decadron) 10 mg IV NOW ONE Stop: 12/11/18 17:16 Last Admin: 12/11/18 17:58 Dose: Not Given Diphenhydramine HCl (Benadryl) 25 mg IV NOW ONE Stop: 12/11/18 17:16 Last Admin: 12/11/18 17:22 Dose: 25 mg Sodium Chloride (Normal Saline 0.9%) 1,000 mls @ 1,000 mls/hr IV BOLUS ONE Stop: 12/11/18 18:14 Last Infusion: 12/11/18 18:17 Dose: 0 mls/hr Admin: 12/11/18 17:22 Dose: 1,000 mls/hr Ketorolac Tromethamine (Toradol) 30 mg IV NOW ONE Stop: 12/11/18 18:31 Last Admin: 12/11/18 18:45 Dose: 30 mg Metoclopramide HCl (Reglan) 10 mg IV NOW ONE Stop: 12/11/18 17:16 Last Admin: 12/11/18 17:22 Dose: 10 mg Vital Signs - 8 hr 12/11/18 16:11 12/11/18 17:14 12/11/18 17:33 Temperature 98.3 F Pulse Rate 85 79 70 Respiratory Rate 20 18 Blood Pressure 133/90 Blood Pressure [Left Arm] 110/68 113/71 Pulse Oximetry 97 99 99 12/11/18 18:30 12/11/18 19:45 Temperature Pulse Rate 63 62 Respiratory Rate 15 Blood Pressure Blood Pressure [Left Arm] 115/53 L 113/66 Pulse Oximetry 97 98 <Renny Avila DO - Last Filed: 12/11/18 23:58> Orders Ordered: ED Orders 12/11/18 16:18 Influenza A and B by PCR Rapid Stat 12/11/18 18:30 CT head/brain wo con Stat 12/11/18 19:00 Complete Blood Count AUTO DIFF Stat Comprehensive Metabolic Panel Stat Discontinued Medications Dexamethasone (Decadron) 10 mg IV NOW ONE Stop: 12/11/18 17:16 Last Admin: 12/11/18 17:58 Dose: Not Given Diphenhydramine HCl (Benadryl) 25 mg IV NOW ONE Stop: 12/11/18 17:16 Last Admin: 12/11/18 17:22 Dose: 25 mg Sodium Chloride (Normal Saline 0.9%) 1,000 mls @ 1,000 mls/hr IV BOLUS ONE Stop: 12/11/18 18:14 Last Infusion: 12/11/18 18:17 Dose: 0 mls/hr Admin: 12/11/18 17:22 Dose: 1,000 mls/hr Ketorolac Tromethamine (Toradol) 30 mg IV NOW ONE Stop: 12/11/18 18:31 Last Admin: 12/11/18 18:45 Dose: 30 mg Metoclopramide HCl (Reglan) 10 mg IV NOW ONE Stop: 12/11/18 17:16 Last Admin: 12/11/18 17:22 Dose: 10 mg Vital Signs - 8 hr 12/11/18 16:11 12/11/18 17:14 12/11/18 17:33 Temperature 98.3 F Pulse Rate 85 79 70 Respiratory Rate 20 18 Blood Pressure 133/90 Blood Pressure [Left Arm] 110/68 113/71 Pulse Oximetry 97 99 99 12/11/18 18:30 12/11/18 19:45 Temperature Pulse Rate 63 62 Respiratory Rate 15 Blood Pressure Blood Pressure [Left Arm] 115/53 L 113/66 Pulse Oximetry 97 98 MDM - Headache <KINGS Wilkerson - Last Filed: 12/11/18 21:26> Lab Data Result diagrams: 12/11/18 19:00 12/11/18 19:00 Lab Results 12/11/18 12/11/18 12/11/18 Range/Units 16:18 19:00 19:00 WBC 6.5 (4.5-11.0) X10^3/uL RBC 4.24 (4.0-5.2) X10^6/uL Hgb 12.8 (12.0-16.0) g/dL Hct 38.4 (36-46) % MCV 90.5 (80-100) fL MCH 30.2 (26-34) PG MCHC 33.4 (30-36) % RDW 13.4 (11.6-14.8) % Plt Count 222 (150-400) X10^3/uL Neut % (Auto) 60.1 (50-75) % Lymph % (Auto) 28.7 (25-40) % King % (Auto) 7.2 (3-14) % Eos % (Auto) 3.6 (2-4) % Baso % (Auto) 0.4 (0-2) % Neut # (Auto) 3900 (6310-4717) /uL Lymph # (Auto) 1900 (9881-8287) /uL King # (Auto) 500 (0-900) /uL Eos # (Auto) 200 (0-450) /uL Baso # (Auto) 0 (0-100) /uL Sodium 139 (137-145) mmol/L Potassium 4.0 (3.4-5.1) mmol/L Chloride 108 H (98-107) mmol/L Carbon Dioxide 23 (22-32) mmol/L BUN 9 (7-17) mg/dL Creatinine 0.70 (0.52-1.04) mg/dL Estimated GFR > 60.0 (>60) mL/min BUN/Creatinine Ratio 12.9 (6-22) Glucose 94 (70-100) mg/dL Calcium 8.0 L (8.4-10.2) mg/dL Total Bilirubin 0.4 (0.2-1.3) mg/dL AST 22 (14-36) IU/L ALT 26 (9-52) IU/L Alkaline Phosphatase 44 (38-126) U/L Total Protein 6.6 (6.3-8.2) g/dL Albumin 3.9 (3.5-5.0) g/dL Globulin 2.7 (1.7-4.1) g/dL Albumin/Globulin Ratio 1.4 (1.0-2.8) Influenza A & B (PCR) Negative (Negative) Imaging Data CT scan - head: Radiologist's impression: [address] [address] [address] Scan Report Signed Patient: Yudith Mead EMR#: [id number] : 1980Acct:[id number] Age/Sex: 38 / FDate of Service: 12/11/18 Loc: ED Accession Number: [id number] Procedure: CT head/brain wo con Ordering Provider: Serg Cole PROCEDURE: CT HEAD/BRAIN WO CON INDICATIONS: headache TECHNIQUE: Noncontrast 4.5 mm thick angled axial sections acquired from the foramen magnum to the vertex, with coronal and sagittal reformats. For radiation dose reduction, the following was used: automated exposure control, adjustment of mA and/or kV according to patient size. COMPARISON: [facility], CT, HEAD WITHOUT CONTRAST, 12/07/2015, 16:47. FINDINGS: Image quality: Excellent. CSF spaces: Basal cisterns are patent. No extra-axial fluid collections. Ventricles are normal in size and shape. Brain: No midline shift. No intracranial masses or hemorrhage. Stallings-white matter interface is normal. Skull and face: Calvarium and visualized facial bones are intact, without s uspicious lesions. Sinuses: Visualized sinuses demonstrate minimal right maxillary sinus mucosal thickening. IMPRESSION: 1. No acute intracranial process. Dictated by: Vy Mauro M.D. on 12/11/2018 at 18:50 Approved by: Vy Mauro M.D. on 12/11/2018 at 18:52 MDM Narrative Medical decision making narrative: Influenza swab was obtained and was negative. CT scan was obtained of the head and was also negative. CBC and Chem panel were obtained and were unremarkable. She was given Toradol Reglan and Benadryl along with fluids in the emergency room. This reduced her headache. no emergen t causes of headache are appreciated. headache presents with migraine components. Home to quiet environment. Plenty of fluids and rest. Follow up with primary care provider. Return emergency room for worsening symptoms. <Renny Austin DO - Last Filed: 12/11/18 23:58> Lab Data Lab Results 12/11/18 12/11/18 12/11/18 Range/Units 16:18 19:00 19:00 WBC 6.5 (4.5-11.0) X10^3/uL RBC 4.24 (4.0-5.2) X10^6/uL Hgb 12.8 (12.0-16.0) g/dL Hct 38.4 (36-46) % MCV 90.5 (80-100) fL MCH 30.2 (26-34) PG MCHC 33.4 (30-36) % RDW 13.4 (11.6-14.8) % Plt Count 222 (150-400) X10^3/uL Neut % (Auto) 60.1 (50-75) % Lymph % (Auto) 28.7 (25-40) % King % (Auto) 7.2 (3-14) % Eos % (Auto) 3.6 (2-4) % Baso % (Auto) 0.4 (0-2) % Neut # (Auto) 3900 (3211-6151) /uL Lymph # (Auto) 1900 (1812-4989) /uL King # (Auto) 500 (0-900) /uL Eos # (Auto) 200 (0-450) /uL Baso # (Auto) 0 (0-100) /uL Sodium 139 (137-145) mmol/L Potassium 4.0 (3.4-5.1) mmol/L Chloride 108 H (98-107) mmol/L Carbon Dioxide 23 (22-32) mmol/L BUN 9 (7-17) mg/dL Creatinine 0.70 (0.52-1.04) mg/dL Estimated GFR > 60.0 (>60) mL/min BUN/Creatinine Ratio 12.9 (6-22) Glucose 94 (70-100) mg/dL Calcium 8.0 L (8.4-10.2) mg/dL Total Bilirubin 0.4 (0.2-1.3) mg/dL AST 22 (14-36) IU/L ALT 26 (9-52) IU/L Alkaline Phosphatase 44 (38-126) U/L Total Protein 6.6 (6.3-8.2) g/dL Albumin 3.9 (3.5-5.0) g/dL Globulin 2.7 (1.7-4.1) g/dL Albumin/Globulin Ratio 1.4 (1.0-2.8) Influenza A & B (PCR) Negative (Negative) Discharge Plan Departure Patient Disposition: Home Clinical Impression: Headache Qualifiers: Headache type: unspecified Headache chronicity pattern: acute headache Intractability: not intractable Qualified Code(s): R51 - Headache Discharge Date/Time: 12/11/18 19:57 Interventions: ED Discharge Assessment Last Done: 12/11/18 19:57 Instructions: DI for Migraine, DI for Headache Activity Restrictions/Additional Instructions: Laboratory results today and imaging were unremarkable. Signs and symptoms presents as headache with migraine tendencies. Home to quiet environment. rest. Plenty of fluids. Follow up with her primary care provider next few days. For any worsening symptoms return to the emergency room. Prescriptions: No Action lidocaine [Lidoderm] 1 EACH adhesive patch,medicated 3 patch Topical Q12H Qty: 60 RF: 0 methocarbamol 500 MG tablet 500 - 1,000 mg PO HS Qty: 0 RF: 0 cyclobenzaprine 10 MG tablet 10 mg PO Q8HP PRNQty: 30 RF: 0 hydrocodone-acetaminophen [[place]] 5 MG/325 MG tablet 2 tab PO Q6HP PRNQty: 14 RF: 0 meloxicam [Mobic] 15 MG tablet 15 mg PO AMCC Qty: 30 RF: 0 nitrofurantoin monohyd/m-cryst [Macrobid] 100 MG capsule 100 mg PO BID Qty: 10 RF: 0 hydrocodone-acetaminophen [[place]] 5-325 mg tablet 1 tab PO Q4-6H PRN (Reason: pain) Qty: 10 RF: 0 diazepam [Valium] 5 mg tablet 5 mg PO Q12HR PRN (Reason: muscle spasm) Qty: 10 RF: 0 cyclobenzaprine 10 mg tablet 10 mg PO TID PRN (Reason: muscle spasm) Qty: 10 RF: 0 Referrals: [facility] [Provider Group] <Renny Avila DO - Last Filed: 12/11/18 23:58> Cosign ED Attending Cosignature Attestation: I was immediately available in the department for consultation. Documentation has been reviewed. I agree with assessment and plan.
[2018-12-11 19:12] LABS: Add Manual Diff / Slide Review NO; Basophils Absolute Auto 0 /uL (0-100); Basophils Percent Auto 0.4 % (0-2); Eosinophils Absolute Auto 200 /uL (0-450); Eosinophils Percent Auto 3.6 % (2-4); Hematocrit 38.4 % (36-46); Hemoglobin 12.8 g/dL (12.0-16.0); Lymphocytes Absolute Auto 1900 /uL (1100-4500); Lymphocytes Percent Auto 28.7 % (25-40); Mean Corpuscular HGB Conc 33.4 % (30-36); Mean Corpuscular Hemoglobin 30.2 PG (26-34); Mean Corpuscular Volume 90.5 fL (80-100); Monocytes Absolute Auto 500 /uL (0-900); Monocytes Percent Auto 7.2 % (3-14); Neutrophils Absolute Auto 3900 /uL (1500-7000); Neutrophils Percent Auto 60.1 % (50-75); Platelet Count 222 X10^3/uL (150-400); Red Blood Cell Count 4.24 X10^6/uL (4.0-5.2); Red Cell Distribution Width 13.4 % (11.6-14.8); White Blood Cell Count 6.5 X10^3/uL (4.5-11.0)
[2018-12-11 19:24] LABS: Alanine Aminotransferase 26 IU/L (9-52); Albumin 3.9 g/dL (3.5-5.0); Albumin Globulin Ratio 1.4 (1.0-2.8); Alkaline Phosphatase 44 U/L (38-126); Aspartate Aminotransferase 22 IU/L (14-36); BUN Creatinine Ratio 12.9 (6-22); Bilirubin Total 0.4 mg/dL (0.2-1.3); Blood Urea Nitrogen 9 mg/dL (7-17); Carbon Dioxide 23 mmol/L (22-32); Chloride 108 mmol/L (98-107); Estimated Glomerular Filt Rate > 60.0 mL/min (>60); Globulin 2.7 g/dL (1.7-4.1); Glucose 94 mg/dL (70-100); HEMOLYSIS 17 (0-50); Sodium 139 mmol/L (137-145); Total Protein 6.6 g/dL (6.3-8.2)
[2018-12-11 19:45] VITALS: BP 113/66; PULSE 62; O2SAT 98
== END 2018-12-11 19:57 | disposition home or self-care (01) ==
PROVIDERS: Emergency Medicine; Emergency Provider Nurse Practitioner Family
DX: R51 Headache (principal); R11.2 Nausea with vomiting, unspecified; H53.149 Visual discomfort, unspecified
CPT/HCPCS: 70450; 80053; 85025; 87400; 96361; 96374; 96375; 99283; 99284; J1200; J1885; J2765

== ENCOUNTER 2019-08-29 17:38 | Emergency (ER) | payer OTHER, SELFPAY ==
[2019-08-29 17:42] VITALS: BP 133/92; PULSE 89; RESP 16; TEMP 36.1; O2SAT 100; BMI 31.4
[2019-08-29 18:13] LABS: Bacteria Urine None Seen; RBC Urine None Seen (0-5/HPF)
--- NOTE | 2019-08-29 18:31 | ED_ITS ---
HPI - Abdominal Pain General Chief Complaint: Abdominal Pain Stated Complaint: back and abdominal pain Time Seen by Provider: 08/29/19 18:02 Source: patient Mode of arrival: Ambulatory Limitations: no limitations History of Present Illness HPI narrative: 39-year-old female here for evaluation of approximately 4 days of cloudy urine, right-sided flank pain, right-sided back pain, nausea without vomiting, no specific fevers, body aches, and generalized skin itching without a rash. No prior abdominal surgeries. Took some Benadryl at home for the skin itching however this only improved her symptoms for short period of time. No vaginal bleeding. No diarrhea or constipation. Related Data Home Medications Medication Instructions Recorded Confirmed bupropion HCl 150 mg PO DAILY 08/29/19 08/29/19 buspirone 10 mg PO BID 08/29/19 08/29/19 hydroxyzine pamoate 25 mg PO DAILY 08/29/19 08/29/19 trazodone 200 mg PO BEDTIME 08/29/19 08/29/19 Previous Rx's Medication Instructions Recorded prednisone 40 mg PO DAILY 3 Days #6 tab 08/29/19 Allergies Allergy/AdvReac Type Severity Reaction Status Date / Time verapamil [VERAPAMIL] Allergy Severe MY BP Verified 08/29/19 17:47 TANKS Review of Systems Constitutional Constitutional: Reports fatigue, Denies fever(s) and Reports lethargy Cardiovascular Cardiovascular: Denies chest pain and Denies dyspnea Respiratory Respiratory: Denies dyspnea Gastrointestinal Gastrointestinal: Reports abdominal pain, Denies change in stool character, Reports nausea and Denies vomiting Genitourinary Genitourinary: Denies dysuria and Denies vaginal discharge Musculoskeletal Musculoskeletal: Denies myalgias and Denies arthralgias Integumentary/Breasts Skin/Breast: Denies lesions and Denies rash Neurologic Neurologic: Denies behavioral changes Psychiatric Psychiatric: Denies behavioral changes Endocrine Endocrine: Reports fatigue Hematologic/Lymphatic Hematologic/Lymphatic: Denies easy bleeding and Denies easy bruising Allergic/Immunologic Allergic/Immunologic: Denies urticaria Patient History Medical History CSF leak (Acute) PSVT (paroxysmal supraventricular tachycardia) (Acute) Social History Smoking Status: Never smoker Smoking Status: Never smoker alcohol intake frequency: 3 or more drinks per day Alcohol type: wine Substance Use Type: does not use Exam Initial Vital Signs Initial Vital Signs: Vital Signs Temperature 97.0 F L 08/29/19 17:42 Pulse Rate 89 08/29/19 17:42 Respiratory Rate 16 08/29/19 17:42 Blood Pressure 133/92 H 08/29/19 17:42 Pulse Oximetry 100 08/29/19 17:42 Const General: cooperative, comfortable and well developed Orientation: alert, awake and oriented x3 HENMT Head: normal to inspection and normocephalic Resp Effort & Inspection: normal respiratory effort Auscultation: clear to auscultation bilaterally Cardio Rate: regular rate Rhythm: regular rhythm Pulses: radial pulses present GI Inspection: non-distended Palpation: soft, No firm and tender (Right upper quadrant, positive Cheung sign) Back/Spine/Pelvis Back: CVA tenderness right Skin Lesions: no lesions Rashes: no rashes Neuro General: alert, awake and oriented x3 Cognition: normal cognition Speech: speech normal Extrem General: normal to inspection and capillary refill normal Psych Appearance: grossly normal and well kempt Course Orders Ordered: ED Orders 08/29/19 17:54 Urine Culture Stat Urine Microscopic Stat 08/29/19 18:12 Complete Blood Count AUTO DIFF Stat Comprehensive Metabolic Panel Stat Lipase Stat Partial Thromboplastin Time Stat Prothrombin Time INR Stat 08/29/19 18:43 CT kidney ureter bladder (KUB) Stat 08/29/19 19:43 US abdomen limited Stat Discontinued Medications Diphenhydramine HCl (Benadryl) 25 mg IV NOW ONE Stop: 08/29/19 18:44 Last Admin: 08/29/19 19:02 Dose: 25 mg Documented by: MEISENB Sodium Chloride (Normal Saline 0.9%) 1,000 mls @ 1,000 mls/hr IV BOLUS ONE Stop: 08/29/19 19:42 Last Infusion: 08/29/19 19:57 Dose: 1,000 mls/hr Documented by: Admin: 08/29/19 19:02 Dose: 1,000 mls/hr Documented by: MEISENB Methylprednisolone (Solu-Medrol 125 Mg Vial) 125 mg IV NOW ONE Stop: 08/29/19 20:46 Last Admin: 08/29/19 20:53 Dose: 125 mg Documented by: [email or web address] Morphine Sulfate (Morphine) 4 mg IV NOW ONE Stop: 08/29/19 18:44 Last Admin: 08/29/19 19:02 Dose: 4 mg Documented by: VIDALSENSmith Ondansetron HCl (Zofran Odt Prepack) 1 bottle MISC SEEINSTR ONE Stop: 08/29/19 20:46 Last Admin: 08/29/19 20:53 Dose: 1 bottle Documented by: TOMASZ Tramadol HCl (Ultram 50mg Prepack) 1 bottle MISC SEEINSTR ONE Stop: 08/29/19 20:46 Last Admin: 08/29/19 20:53 Dose: 1 bottle Documented by: TOMASZ Vital Signs Vital signs: Vital Signs - 8 hr 08/29/19 19:14 08/29/19 20:09 08/29/19 20:55 Pulse Rate 72 72 72 Respiratory Rate 16 20 14 Blood Pressure [Left Arm] 135/95 H 132/86 140/84 Pulse Oximetry 100 100 97 MDM - Abdominal Pain Medical Records Attestation: I reviewed the patient's medical records. Lab Data Attestation: I reviewed the patient's lab results. Result diagrams: 08/29/19 18:12 08/29/19 18:12 Labs: Lab Results 08/29/19 08/29/19 08/29/19 Range/Units 17:54 18:12 18:12 WBC 7.9 (4.5-11.0) X10^3/uL RBC 4.49 (4.0-5.2) X10^6/uL Hgb 14.0 (12.0-16.0) g/dL Hct 40.8 (36-46) % MCV 90.8 (80-100) fL MCH 31.1 (26-34) PG MCHC 34.2 (30-36) % RDW 13.3 (11.6-14.8) % Plt Count 241 (150-400) X10^3/uL Neut % (Auto) 62.0 (50-75) % Lymph % (Auto) 28.2 (25-40) % Harrison % (Auto) 7.6 (3-14) % Eos % (Auto) 1.6 L (2-4) % Baso % (Auto) 0.6 (0-2) % Neut # (Auto) 4900 (0806-5073) /uL Lymph # (Auto) 2200 (4468-0204) /uL Harrison # (Auto) 600 (0-900) /uL Eos # (Auto) 100 (0-450) /uL Baso # (Auto) 0 (0-100) /uL PT 11.0 (10.1-12.7) SECONDS INR 1.0 (0.9-1.3) APTT 30 (26.4-36.2) SECONDS Sodium (137-145) mmol/L Potassium (3.4-5.1) mmol/L Chloride (98-107) mmol/L Carbon Dioxide (22-32) mmol/L BUN (7-17) mg/dL Creatinine (0.52-1.04) mg/dL Estimated GFR (>60) mL/min BUN/Creatinine Ratio (6-22) Glucose (70-100) mg/dL Calcium (8.4-10.2) mg/dL Total Bilirubin (0.2-1.3) mg/dL AST (14-36) IU/L ALT (<35) IU/L Alkaline Phosphatase (38-126) U/L Total Protein (6.3-8.2) g/dL Albumin (3.5-5.0) g/dL Globulin (1.7-4.1) g/dL Albumin/Globulin Ratio (1.0-2.8) Lipase (23-300) U/L Urine RBC None seen (0-5/HPF) Urine WBC 5-10/hpf H (0-5/HPF) Ur Squamous Epith Cells 5-10 /hpf H (0-5/HPF) Urine Bacteria None seen (None) Ur Culture Indicated? Cult not indicated 08/29/19 Range/Units 18:12 WBC (4.5-11.0) X10^3/uL RBC (4.0-5.2) X10^6/uL Hgb (12.0-16.0) g/dL Hct (36-46) % MCV (80-100) fL MCH (26-34) PG MCHC (30-36) % RDW (11.6-14.8) % Plt Count (150-400) X10^3/uL Neut % (Auto) (50-75) % Lymph % (Auto) (25-40) % Harrison % (Auto) (3-14) % Eos % (Auto) (2-4) % Baso % (Auto) (0-2) % Neut # (Auto) (7609-8563) /uL Lymph # (Auto) (6078-1426) /uL Harrison # (Auto) (0-900) /uL Eos # (Auto) (0-450) /uL Baso # (Auto) (0-100) /uL PT (10.1-12.7) SECONDS INR (0.9-1.3) APTT (26.4-36.2) SECONDS Sodium 139 (137-145) mmol/L Potassium 4.0 (3.4-5.1) mmol/L Chloride 103 (98-107) mmol/L Carbon Dioxide 25 (22-32) mmol/L BUN 11 (7-17) mg/dL Creatinine 0.80 (0.52-1.04) mg/dL Estimated GFR > 60.0 (>60) mL/min BUN/Creatinine Ratio 13.8 (6-22) Glucose 102 H (70-100) mg/dL Calcium 9.6 (8.4-10.2) mg/dL Total Bilirubin 0.6 (0.2-1.3) mg/dL AST 35 (14-36) IU/L ALT 41 H (<35) IU/L Alkaline Phosphatase 69 (38-126) U/L Total Protein 7.7 (6.3-8.2) g/dL Albumin 4.7 (3.5-5.0) g/dL Globulin 3.0 (1.7-4.1) g/dL Albumin/Globulin Ratio 1.6 (1.0-2.8) Lipase 27 (23-300) U/L Urine RBC (0-5/HPF) Urine WBC (0-5/HPF) Ur Squamous Epith Cells (0-5/HPF) Urine Bacteria (None) Ur Culture Indicated? Point of care testing: Urine Dip Bedside Urine Glucose Negative Bedside Urine Bilirubin - Negative Bedside Urine Ketone ++ 40 Urine Specific [place] 1.015 Bedside Urine Occult Blood - Negative Bedside Urine pH 6.5 Bedside Urine Protein +/- 15 Bedside Urine Urobilinogen 2+ 4mg Bedside Urine Nitrite - Negative Bedside Urine Leukocytes ++ [address] scan - abdomen: Radiologist's impression: [address] [address] [address] Scan Report Signed Patient: Yudith Mead EMR#: [id number] : 1980Acct:[id number] Age/Sex: 39 / FDate of Service: 08/29/19 Loc: ED Accession Number: [id number] Procedure: CT kidney ureter bladder (KUB) Ordering Provider: Dhaval Ellison D.O. PROCEDURE: CT KIDNEY URETER BLADDER (KUB) INDICATIONS: Right side pain eval for stone TECHNIQUE: Noncontrast 5 mm thick sections acquired from the diaphragms to the symphysis. 5 mm thick coronal and sagittal reformats were then performed. For radiation dose reduction, the following was used: automated exposure control, adjustment of mA and/or kV according to patient size. COMPARISON: None. FINDINGS: Image quality: Excellent. Lung bases: Lung bases are clear. Heart size is normal. Urinary system: Both kidneys are normal in size. No kidney stones. No hydronephrosis or perinephric fat stranding. Both ureters appear non-dilated throughout their expected courses. Bladder wall thickness is normal; no calcified bladder stones. Other solid organs: Liver is normal in size. Moderate to severe hepatic steatosis is seen. Gallbladder is within normal limits. Pancreas is normal in contours. Spleen is normal in size. No adrenal nodules. Peritoneum and bowel: Unenhanced bowel loops demonstrate normal wall thickness and caliber. No free fluid or air. Free air. Small amount of free fluid in lower pelvis is seen. Nodes and vessels: No retroperitoneal or mesenteric adenopathy by size criteria. Aorta and inferior vena cava are normal in caliber. Abdominal wall: No ventral hernias. Pelvis: No free pelvic fluid. No inguinal hernias or adenopathy. Fluid is noted within the endometrium. There are suggestion of small bilateral ovarian cysts. Bones: No suspicious bony lesions. No vertebral body compression fractures. IMPRESSION: 1. No renal stone or hydronephrosis. 2. Hepatic steatosis. 3. No evidence of acute appendicitis or diverticulitis. No peritoneal free air. 4. Small amount of free fluid in lower pelvis likely represent physiologic fluid. Fluid is noted within the endometrium. Suggestion of small bilateral ovarian cysts. Dictated by: Omari Cavazos M.D. on 08/29/2019 at 19:29 Approved by: Omari Cavazos M.D. on 08/29/2019 at 19:34 US - abdomen: Radiologist's impression: [address] [address] Ultrasound Report Signed Patient: Yudith Mead EMR#: [id number] : 1980Acct:[id number] Age/Sex: 39 / FDate of Service: 08/29/19 Loc: ED Accession Number: [id number] Procedure: US abdomen limited Ordering Provider: Dhaval Ellison D.O. PROCEDURE: US ABDOMEN LIMITED INDICATIONS: RIGHT UPPER QUADRANT ULTRASOUND EVAL FOR GALLBLADDER PATHOLO TECHNIQUE: Real-time scanning was performed of the abdominal and retroperitoneal organs, with image documentation. COMPARISON: None. FINDINGS: Liver: Liver is normal in size. Increased liver parenchymal echotexture is seen. No discrete hepatic lesion is noted. Suggestion of focal sparing adjacent to gallbladder fossa is seen. Gallbladder: And sludge material in dependent portion of gallbladder lumen. No gallbladder wall thickening or pericholecystic fluid. No sonographic Cheung's sign. Biliary ducts: Intrahepatic bile ducts are non-dilated. Extrahepatic bile duct caliber measures 7 mm. Normal is 6-7 mm or less in diameter, or 10 mm or less post-cholecystectomy. Pancreas: Pancreas is poorly visualized. IMPRESSION: Hepatic steatosis with areas of sparing adjacent to gallbladder fossa. Small stones/sludge material within the gallbladder lumen. No evidence of acute cholecystitis. No biliary ductal dilatation. Dictated by: Omari Cavazos M.D. on 08/29/2019 at 20:26 Approved by: Omari Cavazos M.D. on 08/29/2019 at 20:28 MDM Narrative Medical decision making narrative: Patient has unremarkable vital signs. Does have right-sided flank tenderness and right upper quadrant tenderness. The ultrasound does show sludge in the gallbladder with stones however no other signs of cholecystitis. This could be the cause of the symptoms of brought her in today. LFTs unremarkable. Lipase is unremarkable. Informed her that the generalized body itching could be related to cholesterol/triglycerides however this is best tested after she has been fasting and she should talk with her primary doctor about this. No indication for antibiotics. She has no urinary symptoms. Urine culture was pending at the time of discharge. We'll call or for any positive results. CT scan shows no signs of kidney stones. I do suspect that her right upper quadrant pain could be the result of her passing stones or gallbladder. I did discuss this with her. Discussed that she should talk with her primary doctor about a referral to see General surgery potentially have her gallbladder removed. We discussed diet with regard to this. She was given return precautions and follow-up instructions. She expressed understanding agreement Discharge Plan Departure Patient Disposition: Home Clinical Impression: Genital pruritus Cholelithiasis Qualifiers: Cholelithiasis location: other site Biliary obstruction: without biliary obstruction Qualified Code(s): K80.80 - Other cholelithiasis without obstruction Abdominal pain Qualifiers: Abdominal location: right upper quadrant Qualified Code(s): R10.11 - Right upper quadrant pain Discharge Date/Time: 08/29/19 21:01 Instructions: Gallstones Activity Restrictions/Additional Instructions: Recommend that you continue all of your medications as directed. Also recommend you talk with your primary doctor about potentially getting your cholesterol checked. You can also talk with your primary doctor about a referral to see General surgery with regard your gallbladder. Take the medications as directed. Return to the emergency department for any new or worsening symptoms Prescriptions: New prednisone 20 mg tablet 40 mg PO DAILY 3 Days Qty: 6 RF: 0 No Action buspirone 10 mg tablet 10 mg PO BID RF: 0 bupropion HCl 150 mg tablet extended release 24 hr 150 mg PO DAILY RF: 0 trazodone 100 mg tablet 200 mg PO BEDTIME RF: 0 hydroxyzine pamoate 25 mg capsule 25 mg PO DAILY RF: 0
[2019-08-29 18:34] LABS: Add Manual Diff / Slide Review NO; Basophils Absolute Auto 0 /uL (0-100); Basophils Percent Auto 0.6 % (0-2); Eosinophils Absolute Auto 100 /uL (0-450); Eosinophils Percent Auto 1.6 % (2-4); Hematocrit 40.8 % (36-46); Lymphocytes Absolute Auto 2200 /uL (1100-4500); Lymphocytes Percent Auto 28.2 % (25-40); Mean Corpuscular HGB Conc 34.2 % (30-36); Mean Corpuscular Hemoglobin 31.1 PG (26-34); Mean Corpuscular Volume 90.8 fL (80-100); Monocytes Absolute Auto 600 /uL (0-900); Monocytes Percent Auto 7.6 % (3-14); Neutrophils Absolute Auto 4900 /uL (1500-7000); Platelet Count 241 X10^3/uL (150-400); Red Blood Cell Count 4.49 X10^6/uL (4.0-5.2); Red Cell Distribution Width 13.3 % (11.6-14.8); White Blood Cell Count 7.9 X10^3/uL (4.5-11.0)
[2019-08-29 18:40] LABS: WBC Urine 5-10/HPF (0-5/HPF)
[2019-08-29 18:41] LABS: Alanine Aminotransferase 41 IU/L (<35); Albumin 4.7 g/dL (3.5-5.0); Albumin Globulin Ratio 1.6 (1.0-2.8); Alkaline Phosphatase 69 U/L (38-126); Aspartate Aminotransferase 35 IU/L (14-36); BUN Creatinine Ratio 13.8 (6-22); Bilirubin Total 0.6 mg/dL (0.2-1.3); Blood Urea Nitrogen 11 mg/dL (7-17); Calcium 9.6 mg/dL (8.4-10.2); Carbon Dioxide 25 mmol/L (22-32); Chloride 103 mmol/L (98-107); Estimated Glomerular Filt Rate > 60.0 mL/min (>60); Glucose 102 mg/dL (70-100); HEMOLYSIS < 15 (0-50); Lipase 27 U/L (23-300); Sodium 139 mmol/L (137-145); Total Protein 7.7 g/dL (6.3-8.2)
[2019-08-29 18:41] LABS: Culture Indicated Urine Cult Not Indicated; Squamous Epithelial Cell Urine 5-10 /HPF (0-5/HPF)
--- NOTE | 2019-08-29 18:43 | DI.CT.S_ITS ---
PROCEDURE: CT KIDNEY URETER BLADDER (KUB) INDICATIONS: Right side pain eval for stone TECHNIQUE: Noncontrast 5 mm thick sections acquired from the diaphragms to the symphysis. 5 mm thick coronal and sagittal reformats were then performed. For radiation dose reduction, the following was used: automated exposure control, adjustment of mA and/or kV according to patient size. COMPARISON: None. FINDINGS: Image quality: Excellent. Lung bases: Lung bases are clear. Heart size is normal. Urinary system: Both kidneys are normal in size. No kidney stones. No hydronephrosis or perinephric fat stranding. Both ureters appear non-dilated throughout their expected courses. Bladder wall thickness is normal; no calcified bladder stones. Other solid organs: Liver is normal in size. Moderate to severe hepatic steatosis is seen. Gallbladder is within normal limits. Pancreas is normal in contours. Spleen is normal in size. No adrenal nodules. Peritoneum and bowel: Unenhanced bowel loops demonstrate normal wall thickness and caliber. No free fluid or air. Free air. Small amount of free fluid in lower pelvis is seen. Nodes and vessels: No retroperitoneal or mesenteric adenopathy by size criteria. Aorta and inferior vena cava are normal in caliber. Abdominal wall: No ventral hernias. Pelvis: No free pelvic fluid. No inguinal hernias or adenopathy. Fluid is noted within the endometrium. There are suggestion of small bilateral ovarian cysts. Bones: No suspicious bony lesions. No vertebral body compression fractures. IMPRESSION: 1. No renal stone or hydronephrosis. 2. Hepatic steatosis. 3. No evidence of acute appendicitis or diverticulitis. No peritoneal free air. 4. Small amount of free fluid in lower pelvis likely represent physiologic fluid. Fluid is noted within the endometrium. Suggestion of small bilateral ovarian cysts. Dictated by: Omari Cavazos M.D. on 08/29/2019 at 19:29 Approved by: Omari Cavazos M.D. on 08/29/2019 at 19:34
[2019-08-29 18:55] LABS: PTT Partial Thromboplastin Tim 30 SECONDS (26.4-36.2)
[2019-08-29] MEDS: diphenhydrAMINE 50 MG/ML VIAL 25 MG IV (19:02)
[2019-08-29] MEDS: MORPHINE 4 MG/ML INJ IV (19:02)
[2019-08-29] MEDS: SODIUM CHLORIDE 0.9% 1,000 ML 1000 ML IV (19:02)
[2019-08-29 19:14] VITALS: BP 135/95; PULSE 72; RESP 16; O2SAT 100
--- NOTE | 2019-08-29 19:43 | DI.US.S_ITS ---
PROCEDURE: US ABDOMEN LIMITED INDICATIONS: RIGHT UPPER QUADRANT ULTRASOUND EVAL FOR GALLBLADDER PATHOLO TECHNIQUE: Real-time scanning was performed of the abdominal and retroperitoneal organs, with image documentation. COMPARISON: None. FINDINGS: Liver: Liver is normal in size. Increased liver parenchymal echotexture is seen. No discrete hepatic lesion is noted. Suggestion of focal sparing adjacent to gallbladder fossa is seen. Gallbladder: And sludge material in dependent portion of gallbladder lumen. No gallbladder wall thickening or pericholecystic fluid. No sonographic Cheung's sign. Biliary ducts: Intrahepatic bile ducts are non-dilated. Extrahepatic bile duct caliber measures 7 mm. Normal is 6-7 mm or less in diameter, or 10 mm or less post-cholecystectomy. Pancreas: Pancreas is poorly visualized. IMPRESSION: Hepatic steatosis with areas of sparing adjacent to gallbladder fossa. Small stones/sludge material within the gallbladder lumen. No evidence of acute cholecystitis. No biliary ductal dilatation. Dictated by: Omari Cavazos M.D. on 08/29/2019 at 20:26 Approved by: Omari Cavazos M.D. on 08/29/2019 at 20:28
[2019-08-29 20:09] VITALS: BP 132/86; PULSE 72; RESP 20; O2SAT 100
[2019-08-29] MEDS: TRAMADOL 50 MG PREPACK 1 BOTTLE MISC (20:53)
[2019-08-29] MEDS: ONDANSETRON 4 MG ODT PREPACK 1 BOTTLE MISC (20:53)
[2019-08-29] MEDS: methylPREDNISolone 125 MG/2 ML VIAL IV (20:53)
[2019-08-29 20:55] VITALS: BP 140/84; PULSE 72; RESP 14; O2SAT 97
== END 2019-08-29 21:01 | disposition home or self-care (01) ==
PROVIDERS: Emergency Medicine; Emergency Provider Emergency Medicine
DX: K80.80 Other cholelithiasis without obstruction (principal); R10.11 Right upper quadrant pain; L29.3 Anogenital pruritus, unspecified
CPT/HCPCS: 36415; 74176; 76705; 80053; 81003; 81015; 83690; 85025; 85610; 85730; 87077; 87086; 87186; 96361; 96374; 96375; 99284; J1200; J2270; J2930